=== PATIENT | male | born 1960 | race Caucasian/White ===

== ENCOUNTER → 2017-04-11 | Outpatient (CLI) | payer OTHER ==
--- NOTE | 2017-04-11 11:25 | XR ---
EXAMINATION TYPE: XR hand complete RT DATE OF EXAM: 04/11/2017 COMPARISON: NONE HISTORY: Pain TECHNIQUE: Three views are submitted. FINDINGS: The osseous structures are intact. Hypertrophic change and severe narrowing of the joint space second MCP moderate changes involving the third MCP. No acute fracture or dislocation. No erosive changes. IMPRESSION: 1. Second and third MCP joint arthropathy and hypertrophic pattern correlate for osteoarthritis.
== END | disposition home or self-care (01) ==
LOC: RADXRYALE 11:07
PROVIDERS: ATTEND Internal Medicine
DX: M12.9 Arthropathy, unspecified (principal)

== ENCOUNTER → 2017-04-26 | Outpatient (CLI) | payer OTHER ==
--- NOTE | 2017-04-26 15:03 | XR ---
EXAMINATION TYPE: XR chest 2V DATE OF EXAM: 04/26/2017 COMPARISON: 02/28/2016 TECHNIQUE: PA and lateral views submitted. HISTORY: Shortness of breath FINDINGS: The lungs are clear and there is no pneumothorax, pleural effusion, or focal pneumonia. Biapical pl eural thickening. Postsurgical changes. Arthropathy of the shoulders. Hyperinflation suggests COPD. D egenerative change of the spine. No overt failure. IMPRESSION: 1. No acute process.
== END | disposition home or self-care (01) ==
LOC: RADXRYALE 14:43
PROVIDERS: ATTEND Internal Medicine Rheumatology
DX: R06.02 Shortness of breath (principal)
CPT/HCPCS: 71046

== ENCOUNTER → 2017-05-26 | Outpatient (CLI) | payer OTHER ==
--- NOTE | 2017-05-27 12:06 | ECHOF ---
Referral Reason:I25.10 coronary arteriosclerosis in [place] artery MEASUREMENTS -------- HEIGHT: 175.3 cm WEIGHT: 77.1 kg BP: 151/84 RVIDd: 3.9 cm (< 3.3) IVSd: 1.3 cm (0.6 - 1.1) LVIDd: 4.0 cm (3.9 - 5.3) LVPWd: 1.2 cm (0.6 - 1.1) IVSs: 1.8 cm LVIDs: 3.4 cm LVPWs: 1.3 cm LA Diam: 3.1 cm (2.7 - 3.8) LAESV Index (A-L): 28.27 ml/m Ao Diam: 3.7 cm (2.0 - 3.7) AV Cusp: 1.7 cm (1.5 - 2.6) MV EXCURSION: 20.824 mm (> 18.000) MV EF SLOPE: 101 mm/s (70 - 150) EPSS: 0.8 cm MV E Adelso: 0.96 m/s MV DecT: 280 ms MV A Adelso: 0.76 m/s MV E/A Ratio: 1.26 RAP: 5.00 mmHg RVSP: 37.87 mmHg FINDINGS -------- Sinus rhythm. This was a technically good study. The left ventricular size is normal. There is mild concentric left ventricular hypertrophy. Overa ll left ventricular systolic function is low-normal with, an EF between 50 - 55 %. The right ventricle is mild to moderately enlarged. Normal LA size by volume 22+/-6 ml/m2. The right atrium is normal in size. There is mild aortic valve sclerosis. The mitral valve is normal. Mild tricuspid regurgitation present. The pulmonic valve was not well visualized. The aortic root is dilated measuring 3.7cm. The inferior vena cava is mildly dilated. There is no pericardial effusion. CONCLUSIONS -------- 1. Sinus rhythm. 2. This was a technically good study. 3. The left ventricular size is normal. 4. There is mild concentric left ventricular hypertrophy. 5. Overall left ventricular systolic function is low-normal with, an EF between 50 - 55 %. 6. The right ventricle is mild to moderately enlarged. 7. Normal LA size by volume 22+/-6 ml/m2. 8. The right atrium is normal in size. 9. There is mild aortic valve sclerosis. 10. The mitral valve is normal. 11. Mild tricuspid regurgitation present. 12. The pulmonic valve was not well visualized. 13. The aortic root is dilated measuring 3.7cm. 14. The inferior vena cava is mildly dilated. 15. There is no pericardial effusion. HELP DESK AGENT: Rashi Reeder RDCS
== END | disposition home or self-care (01) ==
LOC: RADECHMAIN 15:14
PROVIDERS: ATTEND Internal Medicine
DX: I07.1 Rheumatic tricuspid insufficiency (principal)
CPT/HCPCS: 93306

== ENCOUNTER → 2017-06-02 | Outpatient (CLI) | payer OTHER ==
--- NOTE | 2017-06-03 07:31 | US ---
EXAMINATION TYPE: US kidneys/renal and bladder DATE OF EXAM: 06/02/2017 COMPARISON: NONE CLINICAL HISTORY: I77.6 Vasculitis,I25.10 Coronary arterial sclerosis. Pt states protein in urine EXAM MEASUREMENTS: Right Kidney: 10.8 x 4.3 x 5.0 cm Left Kidney: 11.0 x 5.6 x 5.7 cm Right Kidney: Appeared wnl, lower pole gassed out Left Kidney: Appeared wnl Bladder: wnl Bilateral Jets seen: Only left jet visualized IMPRESSION: Normal renal ultrasound as visualized.
== END | disposition home or self-care (01) ==
LOC: RADUSWWP 15:51
PROVIDERS: ATTEND Internal Medicine
DX: I77.6 Arteritis, unspecified (principal); I25.10 Atherosclerotic heart disease of native coronary artery without angina pectoris; N52.8 Other male erectile dysfunction
CPT/HCPCS: 76770

== ENCOUNTER 2018-10-24 12:14 | Inpatient (IN) | payer OTHER ==
[2018-10-24] MEDS ORDERED: methylPREDNISolone SOD SUCCI 125 MG/2 ML VIAL IV STA (12:36)
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
[2018-10-24 13:00] LABS: Basophils # (A) 0.1 k/uL (0-0.2); Basophils % (A) 1 %; Eosinophils # (A) 0.1 k/uL (0-0.7); Eosinophils % (A) 1 %; HCT 39.3 % (39.0-53.0); HGB 13.3 gm/dL (13.0-17.5); Lymphocytes % (A) 9 %; MCH 35.8 pg (25.0-35.0); MCHC 33.8 g/dL (31.0-37.0); MCV 105.9 fL (80.0-100.0); Macrocytosis Moderate; Mean Platelet Volume 8.1; Monocytes # (A) 0.7 k/uL (0-1.0); Monocytes % (A) 7 %; Neutrophils # (A) 8.2 k/uL (1.3-7.7); Neutrophils % (A) 80 %; Platelet Count 114 k/uL (150-450); RBC 3.71 m/uL (4.30-5.90); RDW 13.8 % (11.5-15.5); WBC 10.2 k/uL (3.8-10.6)
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
[2018-10-24 13:07] LABS: INR 0.9 (<1.2); Partial Thromboplastin Time 24.1 sec (22.0-30.0); Prothrombin Time 10.2 sec (9.0-12.0)
[2018-10-24 13:13] LABS: ALT 24 U/L (21-72); AST 43 U/L (17-59); African American GFR (CKD) >90 (>60 ml/min/1.73 sqM); Albumin 3.4 g/dL (3.5-5.0); Alkaline Phosphatase 64 U/L (38-126); Anion Gap 9 mmol/L; Blood Urea Nitrogen 25 mg/dL (9-20); Calcium 8.9 mg/dL (8.4-10.2); Carbon Dioxide 25 mmol/L (22-30); Chloride 106 mmol/L (98-107); Glucose 83 mg/dL (74-99); Magnesium 1.9 mg/dL (1.6-2.3); Sodium 140 mmol/L (137-145); Total Bilirubin 1.4 mg/dL (0.2-1.3); Total Protein 6.8 g/dL (6.3-8.2)
[2018-10-24] MEDS ORDERED: ONDANSETRON 4 MG/2 ML VIAL IVP STA (14:01)
[2018-10-24] MEDS ORDERED: MORPHINE SULFATE 4 MG/ML SYRINGE IVP STA (14:01)
--- NOTE | 2018-10-24 14:48 | CT ---
EXAMINATION TYPE: CT chest angio for PE DATE OF EXAM: 10/24/2018 COMPARISON: Same day chest x-ray. HISTORY: COPD with chest pain. CT DLP: 272.8 mGycm. Automated Exposure Control for Dose Reduction was Utilized. CONTRAST: CTA scan of the thorax is performed without and with IV Contrast, patient injected with 100 mL of Iso usman 370, pulmonary embolism protocol. MIP Images are created on CT scanner and reviewed. FINDINGS: LUNGS: Moderate underlying emphysematous change with moderate posterior biapical pleural/parenchymal scarring. There is 1.0 x 0.7 cm scarlike nodule right middle lobe axial image 94. There is small left pleural effusion with associated left basilar compressive atelectasis. Some mucus noted dependently in the left lung bronchus on image 82 and axial image 67. MEDIASTINUM: There is satisfactory enhancement of the pulmonary artery and its branches, there is no CT evidence for pulmonary embolism. There are no greater than 1 cm hilar or mediastinal lymph nodes. No cardiomegaly or pericardial effusion is seen. Post-CABG changes with mediastinal clips and ster nal wires is present. Prominent main pulmonary artery 2.8 cm axial image 63 is noted. OTHER: Redemonstration of acute displaced fracture through the left lateral sixth rib. There there is old fracture left lateral third rib axial image 43. There is acute nondisplaced transverse fracture left lateral fourth rib axial image 54 and acute displaced fracture left lateral fifth rib axial imag e 69 along with slightly displaced fracture left lateral seventh rib axial image 98 and left eighth r ib axial image 121. IMPRESSION: 1. No CT evidence for acute pulmonary embolism. 2. Moderate emphysematous change with small left pleural fluid collection presumed hemothorax with as sociated left basilar atelectasis. There are acute slightly displaced fractures through the left fift h through eighth ribs lateral aspect and acute nondisplaced fracture through the left lateral fourth rib. 3. Note is made of 1.0 x 0.7 cm right middle lobe nodule. Follow-up PET/CT should be considered in th is high-risk patient.
[2018-10-24] MEDS ORDERED: ASPIRIN 81 MG PO STA (15:08)
[2018-10-24] MEDS ORDERED: MORPHINE SULFATE 4 MG/ML SYRINGE IVP PRN (15:24)
[2018-10-24] MEDS ORDERED: NALOXONE 0.4 MG/ML 1 ML VIAL IV PRN (15:34)
[2018-10-24 17:23] LABS: Glucose,Whole Blood 124 mg/dL (75-99)
[2018-10-24 17:33] VITALS: BMI 21.9
[2018-10-25 05:57] LABS: African American GFR (CKD) >90 (>60 ml/min/1.73 sqM); Anion Gap 5 mmol/L; Blood Urea Nitrogen 22 mg/dL (9-20); Calcium 8.8 mg/dL (8.4-10.2); Carbon Dioxide 27 mmol/L (22-30); Chloride 104 mmol/L (98-107); Cholesterol 121 mg/dL (<200); Glucose 108 mg/dL (74-99); HDL Cholesterol 40 mg/dL (40-60); LDL Cholesterol,Calculated 65 mg/dL (0-99); Potassium 4.4 mmol/L (3.5-5.1); Sodium 136 mmol/L (137-145); Triglycerides 79 mg/dL (<150)
[2018-10-25 06:24] LABS: Basophils % (A) 0 %; Eosinophils % (A) 0 %; HCT 37.3 % (39.0-53.0); HGB 12.3 gm/dL (13.0-17.5); Lymphocytes # (A) 0.8 k/uL (1.0-4.8); Lymphocytes % (A) 10 %; MCH 35.5 pg (25.0-35.0); MCV 107.5 fL (80.0-100.0); Macrocytosis Moderate; Monocytes # (A) 0.6 k/uL (0-1.0); Monocytes % (A) 7 %; Neutrophils % (A) 81 %; Platelet Count 137 k/uL (150-450); RBC 3.47 m/uL (4.30-5.90); RDW 13.5 % (11.5-15.5); WBC 8.8 k/uL (3.8-10.6)
--- NOTE | 2018-10-25 07:53 | XR ---
EXAMINATION TYPE: XR chest 1V DATE OF EXAM: 10/25/2018 COMPARISON: 10/24/2018 HISTORY: Rib fracture TECHNIQUE: Single frontal view of the chest is obtained. FINDINGS: Left-sided displaced rib fractures again noted. Biapical pleural thickening with no sizabl e pneumothorax. Tiny left pleural effusion noted. Postsurgical changes seen in the heart size is norm al. Arthropathy of the right shoulder. IMPRESSION: 1. Left-sided displaced rib fractures with small left effusion and basilar infiltrate. No sizable pne umothorax.
[2018-10-25] MEDS ORDERED: IPRATROPIUM-ALBUTEROL 3 ML NEB INHALATION PRN ×2 (08:17)
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
[2018-10-25] MEDS: METOPROLOL TARTRATE 25 MG TAB PO SCH ×2 (08:51→20:10)
[2018-10-25] MEDS: ASPIRIN 81 MG PO SCH (08:51)
[2018-10-25] MEDS: ATORVASTATIN 40 MG TAB PO SCH (08:51)
[2018-10-25] MEDS: PANTOPRAZOLE 40 MG TABLET PO SCH (08:51)
--- NOTE | 2018-10-25 08:52 | ECHOF ---
Referral Reason:Elevated troponin,chest wall trauma MEASUREMENTS -------- HEIGHT: 175.3 cm WEIGHT: 67.6 kg BP: RVIDd: 4.0 cm (< 3.3) IVSd: 1.4 cm (0.6 - 1.1) LVIDd: 4.2 cm (3.9 - 5.3) LVPWd: 1.1 cm (0.6 - 1.1) IVSs: 2.1 cm LVIDs: 2.5 cm LVPWs: 1.6 cm LAESV Index (A-L): 29.01 ml/m Ao Diam: 3.6 cm (2.0 - 3.7) AV Cusp: 1.8 cm (1.5 - 2.6) LA Diam: 4.0 cm (2.7 - 3.8) MV E Adelso: 0.50 m/s MV DecT: 247 ms MV A Adelso: 0.75 m/s MV E/A Ratio: 0.67 RAP: 5.00 mmHg RVSP: 21.00 mmHg FINDINGS -------- Sinus rhythm. This was a technically difficult study with suboptimal views. The left ventricular size is normal. There is mild concentric left ventricular hypertrophy. Overa ll left ventricular systolic function is low-normal with, an EF between 50 - 55 %. The diastolic fi lling pattern is normal for the age of the patient {E/E'}. Septal wall motion is delayed and consis tent with prior cardiac surgery. The right ventricle is moderately enlarged. LA is midly dilated 29-33ml/m2. The right atrium was not well visualized. 5.0mg of Lumason was utilized for enhancement of images Interatrial and interventricular septum intact. The aortic valve was not well visualized. There is no evidence of aortic regurgitation. There is no evidence of aortic stenosis. There is trace mitral regurgitation. Mild tricuspid regurgitation present. There is no evidence of pulmonary hypertension. The right v entricular systolic pressure, as measured by Doppler, is 21.00mmHg. There is no pulmonic regurgitation present. The aortic root size is normal. Normal inferior vena cava with normal inspiratory collapse consistent with estimated right atrial pre ssure of 5 mmHg. There is no pericardial effusion. CONCLUSIONS -------- 1. Sinus rhythm. 2. This was a technically difficult study with suboptimal views. 3. The left ventricular size is normal. 4. There is mild concentric left ventricular hypertrophy. 5. Overall left ventricular systolic function is low-normal with, an EF between 50 - 55 %. 6. The diastolic filling pattern is normal for the age of the patient {E/E'} 7. Septal wall motion is delayed and consistent with prior cardiac surgery. 8. The right ventricle is moderately enlarged. 9. LA is midly dilated 29-33ml/m2. 10. The right atrium was not well visualized. 11. 5.0mg of Lumason was utilized for enhancement of images 12. Interatrial and interventricular septum intact. 13. The aortic valve was not well visualized. 14. There is no evidence of aortic regurgitation. 15. There is no evidence of aortic stenosis. 16. There is trace mitral regurgitation. 17. Mild tricuspid regurgitation present. 18. There is no evidence of pulmonary hypertension. 19. The right ventricular systolic pressure, as measured by Doppler, is 21.00mmHg. 20. There is no pulmonic regurgitation present. 21. The aortic root size is normal. 22. Normal inferior vena cava with normal inspiratory collapse consistent with estimated right atrial pressure of 5 mmHg. 23. There is no pericardial effusion. ACCOUNTANT BUDGET: Carolee Velazquez RDCS
[2018-10-25] MEDS: HYDROcodone/APAP 5-325MG 1 EACH TAB PO PRN ×2 (08:54→13:05)
[2018-10-25] MEDS: SODIUM CHLORIDE 0.9% 1,000 ML IV SCH ×4 (08:55→20:07)
[2018-10-25] MEDS ORDERED: ASPIRIN 325 MG TAB PO SCH (09:00)
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
[2018-10-25] MEDS: methylPREDNISolone SOD SUCCI 40 MG/ML 1 ML VIAL IV SCH ×3 (12:19→23:54)
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
[2018-10-25] MEDS: IPRATROPIUM-ALBUTEROL 3 ML NEB INHALATION SCH ×3 (13:02→19:20)
[2018-10-25] MEDS: KETOROLAC 30 MG/ML 1 ML VIAL IVP SCH ×2 (18:14→23:55)
[2018-10-25] MEDS: SYMBICORT 160-4.5 MCG INHALER INHALATION SCH (19:19)
[2018-10-26] MEDS: HYDROcodone/APAP 5-325MG 1 EACH TAB PO PRN ×3 (03:14→21:49)
[2018-10-26] MEDS: SODIUM CHLORIDE 0.9% 1,000 ML IV SCH ×3 (03:15→17:14)
[2018-10-26 05:18] LABS: Basophils % (A) 0 %; Eosinophils % (A) 0 %; HCT 34.6 % (39.0-53.0); HGB 11.2 gm/dL (13.0-17.5); Lymphocytes # (A) 0.4 k/uL (1.0-4.8); Lymphocytes % (A) 6 %; MCH 35.4 pg (25.0-35.0); MCHC 32.4 g/dL (31.0-37.0); MCV 109.1 fL (80.0-100.0); Macrocytosis Moderate; Mean Platelet Volume 8.8; Monocytes # (A) 0.3 k/uL (0-1.0); Monocytes % (A) 4 %; Neutrophils # (A) 6.5 k/uL (1.3-7.7); Neutrophils % (A) 88 %; Platelet Count 122 k/uL (150-450); RBC 3.17 m/uL (4.30-5.90); RDW 13.6 % (11.5-15.5); WBC 7.3 k/uL (3.8-10.6)
[2018-10-26 05:50] LABS: African American GFR (CKD) >90 (>60 ml/min/1.73 sqM); Anion Gap 2 mmol/L; Blood Urea Nitrogen 19 mg/dL (9-20); Calcium 8.3 mg/dL (8.4-10.2); Carbon Dioxide 27 mmol/L (22-30); Chloride 106 mmol/L (98-107); Glucose 116 mg/dL (74-99); Potassium 4.8 mmol/L (3.5-5.1); Sodium 135 mmol/L (137-145)
[2018-10-26] MEDS: methylPREDNISolone SOD SUCCI 40 MG/ML 1 ML VIAL IV SCH ×3 (06:48→17:10)
[2018-10-26] MEDS: KETOROLAC 30 MG/ML 1 ML VIAL IVP SCH ×3 (06:48→17:09)
[2018-10-26] MEDS: PANTOPRAZOLE 40 MG TABLET PO SCH (06:49)
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
--- NOTE | 2018-10-26 07:23 | XR ---
EXAMINATION TYPE: XR chest 2V DATE OF EXAM: 10/26/2018 COMPARISON: 10/25/2018 TECHNIQUE: PA and lateral views submitted. HISTORY: Rib fractures FINDINGS: Left-sided displaced rib fractures again noted. Biapical pleural thickening with no sizable pneumotho rax. Small bowel left pleural effusion noted. Postsurgical changes seen in the heart size is normal. Arthropathy of the right shoulder. Underlying COPD suspected. Coarsened interstitium may reflect coal washer tender zoraida interstitial lung disease. Degenerative change of the spine. IMPRESSION: 1. Multiple displaced left-sided rib fractures with no sizable pneumothorax. Small left pleural effus ion persist. Consolidation likely in the basis of compressive atelectasis 2. Correlate for COPD
[2018-10-26] MEDS: SYMBICORT 160-4.5 MCG INHALER INHALATION SCH ×2 (07:58→19:51)
[2018-10-26] MEDS: IPRATROPIUM-ALBUTEROL 3 ML NEB INHALATION SCH ×4 (07:58→19:51)
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
[2018-10-26] MEDS: ASPIRIN 81 MG PO SCH (08:57)
[2018-10-26] MEDS: METOPROLOL TARTRATE 12.5 MG TAB PO SCH ×2 (08:57→20:55)
[2018-10-26] MEDS: ATORVASTATIN 40 MG TAB PO SCH (08:57)
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
--- NOTE | 2018-10-26 11:01 | P.PN ---
Subjective Progress Note Date: 10/26/18 Principal diagnosis: Flail chest Patient says his breathing is much better today. Better cough. Pain is controlled. White blood cell count 7.3. He is afebrile. Chest x-ray looks about the same. Objective - Vital Signs Vital signs: Vital Signs Temp 98.7 F 10/25/18 20:00 Pulse 61 10/26/18 08:11 Resp 23 10/26/18 07:00 BP 127/91 10/26/18 07:00 Pulse Ox 89 L 10/26/18 07:00 Intake & Output 10/25/18 10/26/18 10/26/18 18:59 06:59 18:59 Intake Total 2985 1575 125 Output Total 1025 900 0 Balance 1960 675 125 Weight 71.4 kg Intake: IV 1625 1375 125 Sodium Chloride 0.9% 1, 1625 1375 125 000 ml @ 125 mls/hr IV . [facility] Rx#:[id number] Oral 1360 200 Output: Urine 1025 900 0 Other: Voiding Method Urinal # Voids 0 - Exam Chest: Equal breath sounds, left-sided chest tenderness unchanged Abdomen: Soft, nontender, nondistended - Labs CBC & Chem 7: 10/26/18 04:55 10/26/18 04:55 Labs: Abnormal Lab Results - Last 24 Hours (Table) 10/26/18 10/26/18 Range/Units 04:55 04:55 RBC 3.17 L (4.30-5.90) m/uL Hgb 11.2 L (13.0-17.5) gm/dL Hct 34.6 L (39.0-53.0) % MCV 109.1 H (80.0-100.0) fL MCH 35.4 H (25.0-35.0) pg Plt Count 122 L (150-450) k/uL Lymphocytes # 0.4 L (1.0-4.8) k/uL Sodium 135 L (137-145) mmol/L Glucose 116 H (74-99) mg/dL Calcium 8.3 L (8.4-10.2) mg/dL Assessment and Plan (1) Flail chest Narrative/Plan: Continue analgesics for multiple rib fractures. Continue pulmonary toilet. Repeat chest x-ray tomorrow. Possible discharge tomorrow if cleared by consultants. Current Visit: Yes Status: Acute Code(s): S22.5XXA - FLAIL CHEST, INITIAL ENCOUNTER FOR CLOSED FRACTURE SNOMED Code(s): 29447581
[2018-10-26] MEDS: guaiFENesin 600 MG TABLET.ER PO SCH ×2 (11:27→20:55)
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
[2018-10-26] MEDS: HEPARIN SODIUM,PORCINE 5,000 UNIT/ML 1 ML VIAL SQ SCH (17:09)
[2018-10-27] MEDS: methylPREDNISolone SOD SUCCI 40 MG/ML 1 ML VIAL IV SCH ×4 (00:02→15:59)
[2018-10-27] MEDS: HEPARIN SODIUM,PORCINE 5,000 UNIT/ML 1 ML VIAL SQ SCH ×3 (00:02→15:57)
[2018-10-27] MEDS: KETOROLAC 30 MG/ML 1 ML VIAL IVP SCH ×3 (00:03→13:22)
[2018-10-27] MEDS: HYDROcodone/APAP 5-325MG 1 EACH TAB PO PRN (02:10)
[2018-10-27] MEDS: SODIUM CHLORIDE 0.9% 1,000 ML IV SCH ×2 (02:12→11:42)
[2018-10-27 05:34] VITALS: TEMP 97.8
[2018-10-27 05:35] VITALS: BP 132/84
[2018-10-27] MEDS: SYMBICORT 160-4.5 MCG INHALER INHALATION SCH (07:27)
[2018-10-27] MEDS: IPRATROPIUM-ALBUTEROL 3 ML NEB INHALATION SCH ×3 (07:27→15:35)
[2018-10-27 07:33] VITALS: RESP 18
[2018-10-27] MEDS: METOPROLOL TARTRATE 12.5 MG TAB PO SCH (07:41)
[2018-10-27] MEDS: guaiFENesin 600 MG TABLET.ER PO SCH (07:41)
[2018-10-27] MEDS: PANTOPRAZOLE 40 MG TABLET PO SCH (07:41)
[2018-10-27] MEDS: ASPIRIN 81 MG PO SCH (07:41)
[2018-10-27] MEDS: ATORVASTATIN 40 MG TAB PO SCH (07:42)
[2018-10-27] MEDS ORDERED: DOCUSATE 100 MG CAP PO STA (07:51)
--- NOTE | 2018-10-27 08:43 | XR ---
EXAMINATION TYPE: XR chest 2V DATE OF EXAM: 10/27/2018 COMPARISON: 10/26/2018 TECHNIQUE: PA and lateral views submitted. HISTORY: Abnormal x-ray FINDINGS:Left-sided displaced rib fractures again noted. Biapical pleural thickening with no sizable pneumothorax. Small bowel left pleural effusion noted. Postsurgical changes seen in the heart size is normal. Arthropathy of the right shoulder. Underlying COPD suspected. Coarsened interstitium may ref lect chronic interstitial lung disease. Degenerative change of the spine. IMPRESSION: 1. Multiple displaced left-sided rib fractures with no sizable pneumothorax. Small left pleural effus ion persist. Consolidation likely in the basis of compressive atelectasis 2. Correlate for COPD
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
[2018-10-27 15:38] VITALS: PULSE 78
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
== END 2018-10-27 16:51 | disposition home or self-care (01) | DRG 183 ==
LOC: EC 12:14 → 3SCARD 14:29 → 2SICU 16:13 → 4MS4W 10-26 18:09
PROVIDERS: ADMIT Surgery; ATTEND Surgery
DX: S22.5XXA Flail chest, initial encounter for closed fracture (principal); J96.01 Acute respiratory failure with hypoxia; S27.1XXA Traumatic hemothorax, initial encounter; J44.1 Chronic obstructive pulmonary disease with (acute) exacerbation; J98.11 Atelectasis; E78.5 Hyperlipidemia, unspecified; F10.10 Alcohol abuse, uncomplicated; F17.200 Nicotine dependence, unspecified, uncomplicated; I25.10 Atherosclerotic heart disease of native coronary artery without angina pectoris; R74.8 Abnormal levels of other serum enzymes; I45.10 Unspecified right bundle-branch block; I25.2 Old myocardial infarction; V29.9XXA Motorcycle rider (driver) (passenger) injured in unspecified traffic accident, initial encounter; Y92.410 Unspecified street and highway as the place of occurrence of the external cause; Z79.51 Long term (current) use of inhaled steroids; Z79.899 Other long term (current) drug therapy; Z80.8 Family history of malignant neoplasm of other organs or systems; Z82.0 Family history of epilepsy and other diseases of the nervous system; Z95.1 Presence of aortocoronary bypass graft
CPT/HCPCS: 36415; 71045; 71046; 71275; 80048; 80053; 80061; 83735; 83880; 84484; 85025; 85610; 85730; 93005; 93306; 94640; 94760; 96374; 96375; 99285

== ENCOUNTER 2019-02-16 10:46 | Inpatient (IN) | payer OTHER ==
[2019-02-16] MEDS ORDERED: methylPREDNISolone SOD SUCCI 125 MG/2 ML VIAL IV STA (11:01)
[2019-02-16] MEDS ORDERED: IPRATROPIUM-ALBUTEROL 3 ML NEB INHALATION STA ×3 (11:01→12:53)
--- NOTE | 2019-02-16 11:03 | ED ---
General Adult HPI - General Stated complaint: oxygen low, difficulty breathing Time Seen by Provider: 02/16/19 10:57 Source: patient, family, RN notes reviewed Limitations: no limitations - History of Present Illness Initial comments: Patient is a pleasant 58-year-old male presenting to the emergency department with difficulty in breathing. Onset of symptoms was a week or so ago. Occasional cough. Patient is on home oxygen at 3 L. Patient sometimes feels mild discomfort in his chest with dyspnea. Patient does have history of similar symptoms previously associated with COPD. Patient was at his doctor's office earlier today and advised come the emergency Department. No leg pain or leg swelling. - Related Data Home Medications Medication Instructions Recorded Confirmed Albuterol Nebulized [Ventolin 2.5 mg INHALATION RT-QID 10/24/18 02/16/19 Nebulized] Atorvastatin [Lipitor] 40 mg PO DAILY 10/24/18 02/16/19 Budesonide/Formoterol Fumarate 2 puff INHALATION RT-BID 10/24/18 02/16/19 [Symbicort 160-4.5 Mcg Inhaler] Ipratropium Nebulized [Atrovent 0.5 mg INHALATION RT-QID 02/16/19 02/16/19 Nebulized 0.2 MG/ML] Tamsulosin HCl [Flomax] 0.4 mg PO DAILY 02/16/19 02/16/19 guaiFENesin [Mucinex] 600 mg PO BID 02/16/19 02/16/19 Previous Rx's Medication Instructions Recorded Albuterol Inhaler [Ventolin Hfa 1 - 2 puff INHALATION RT-Q6H PRN 10/27/18 Inhaler] 30 Days #1 inhaler Allergies Allergy/AdvReac Type Severity Reaction Status Date / Time No Known Allergies Allergy Verified 02/16/19 11:31 Review of Systems ROS Statement: Those systems with pertinent positive or pertinent negative responses have been documented in the HPI. ROS Other: All systems not noted in ROS Statement are negative. Constitutional: Denies: fever Eyes: Denies: eye pain ENT: Denies: ear pain Respiratory: Reports: cough (minimal, nonproductive), dyspnea Cardiovascular: Reports: as per HPI Endocrine: Reports: fatigue Gastrointestinal: Denies: abdominal pain Genitourinary: Denies: dysuria Musculoskeletal: Denies: back pain Skin: Denies: rash Neurological: Denies: headache Past Medical History Past Medical History: COPD, Hyperlipidemia, Myocardial Infarction (CT) Last Myocardial Infarction Date:: History of Any Multi-Drug Resistant Organisms: None Reported Past Surgical History: Coronary Bypass/CABG Past Anesthesia/Blood Transfusion Reactions: No Reported Reaction Past Psychological History: No Psychological Hx Reported Smoking Status: Former smoker Past Alcohol Use History: Daily Additional Past Alcohol Use History / Comment(s): Drinks 8 beers daily; previously smoked 3 packs per day since he was 22 years old, quit 2 years ago Past Drug Use History: None Reported - Past Family History Father Family Medical History: Cancer Additional Family Medical History / Comment(s): prostate and bone cancer. CABG Brother(s) Family Medical History: Seizure Disorder Additional Family Medical History / Comment(s): another brother had throat cancer General Exam Limitations: no limitations General appearance: alert Head exam: Present: normocephalic Neck exam: Present: normal inspection Respiratory exam: Present: respiratory distress (mild), accessory muscle use, decreased breath sounds Cardiovascular Exam: Present: regular rate, normal rhythm GI/Abdominal exam: Present: soft. Absent: tenderness Extremities exam: Present: normal inspection. Absent: pedal edema, calf tenderness Neurological exam: Present: alert Psychiatric exam: Present: normal affect, normal mood Skin exam: Present: normal color Course Vital Signs 02/16/19 02/16/19 02/16/19 11:05 11:09 11:10 Temperature 97.5 F L Pulse Rate 76 104 H Respiratory 24 26 H Rate Blood Pressure 116/68 O2 Sat by Pulse 80 L Oximetry 02/16/19 02/16/19 02/16/19 11:12 11:13 11:21 Temperature Pulse Rate 80 80 86 Respiratory Rate Blood Pressure O2 Sat by Pulse Oximetry EKG Findings - EKG Comments: EKG Findings:: normal sinus rhythm 78. For screening AV block with a MD of 206. QRS 158. QT 440. QTc 510. Superior axis. Right bundle branch block. Inferior Q waves. Nonspecific ST-T. Medical Decision Making - Medical Decision Making patient reevaluated and updated. Patient is somewhat improved. Dr. Steinberg has been paged for admission for Dr. Mccartney. Cardiology will be placed on consult. Patient will be heparinized. Patient will need further cardiac evaluation. - Lab Data Result diagrams: 02/16/19 11:15 02/16/19 11:15 Lab Results 02/16/19 02/16/19 02/16/19 Range/Units 11:15 11:15 11:15 WBC 8.7 (3.8-10.6) k/uL RBC 4.24 L (4.30-5.90) m/uL Hgb 14.8 (13.0-17.5) gm/dL Hct 44.4 (39.0-53.0) % MCV 104.7 H (80.0-100.0) fL MCH 35.0 (25.0-35.0) pg MCHC 33.4 (31.0-37.0) g/dL RDW 13.7 (11.5-15.5) % Plt Count 190 (150-450) k/uL Neutrophils % 76 % Lymphocytes % 11 % Monocytes % 8 % Eosinophils % 2 % Basophils % 1 % Neutrophils # 6.6 (1.3-7.7) k/uL Lymphocytes # 0.9 L (1.0-4.8) k/uL Monocytes # 0.7 (0-1.0) k/uL Eosinophils # 0.2 (0-0.7) k/uL Basophils # 0.1 (0-0.2) k/uL Macrocytosis Slight PT (9.0-12.0) sec INR (<1.2) APTT (22.0-30.0) sec Sodium 137 (137-145) mmol/L Potassium 4.9 (3.5-5.1) mmol/L Chloride 107 (98-107) mmol/L Carbon Dioxide 20 L (22-30) mmol/L Anion Gap 10 mmol/L BUN 21 H (9-20) mg/dL Creatinine 0.96 (0.66-1.25) mg/dL Est GFR (CKD-EPI)AfAm >90 (>60 ml/min/1.73 sqM) Est GFR (CKD-EPI)NonAf 86 (>60 ml/min/1.73 sqM) Glucose 92 (74-99) mg/dL Calcium 9.4 (8.4-10.2) mg/dL Total Bilirubin 0.7 (0.2-1.3) mg/dL AST 33 (17-59) U/L ALT 24 (4-49) U/L Alkaline Phosphatase 131 H (38-126) U/L Troponin I (0.000-0.034) ng/mL NT-Pro-B Natriuret Pep 2520 pg/mL Total Protein 7.7 (6.3-8.2) g/dL Albumin 3.9 (3.5-5.0) g/dL 02/16/19 02/16/19 Range/Units 11:15 11:15 WBC (3.8-10.6) k/uL RBC (4.30-5.90) m/uL Hgb (13.0-17.5) gm/dL Hct (39.0-53.0) % MCV (80.0-100.0) fL MCH (25.0-35.0) pg MCHC (31.0-37.0) g/dL RDW (11.5-15.5) % Plt Count (150-450) k/uL Neutrophils % % Lymphocytes % % Monocytes % % Eosinophils % % Basophils % % Neutrophils # (1.3-7.7) k/uL Lymphocytes # (1.0-4.8) k/uL Monocytes # (0-1.0) k/uL Eosinophils # (0-0.7) k/uL Basophils # (0-0.2) k/uL Macrocytosis PT 10.8 (9.0-12.0) sec INR 1.0 (<1.2) APTT 26.4 (22.0-30.0) sec Sodium (137-145) mmol/L Potassium (3.5-5.1) mmol/L Chloride (98-107) mmol/L Carbon Dioxide (22-30) mmol/L Anion Gap mmol/L BUN (9-20) mg/dL Creatinine (0.66-1.25) mg/dL Est GFR (CKD-EPI)AfAm (>60 ml/min/1.73 sqM) Est GFR (CKD-EPI)NonAf (>60 ml/min/1.73 sqM) Glucose (74-99) mg/dL Calcium (8.4-10.2) mg/dL Total Bilirubin (0.2-1.3) mg/dL AST (17-59) U/L ALT (4-49) U/L Alkaline Phosphatase (38-126) U/L Troponin I 0.108 H* (0.000-0.034) ng/mL NT-Pro-B Natriuret Pep pg/mL Total Protein (6.3-8.2) g/dL Albumin (3.5-5.0) g/dL - Radiology Data Radiology results: image reviewed (chest x-ray shows postoperative changes. No acute pulmonary disease. Small left effusion.) Critical Care Time Critical Care Time: Yes Total Critical Care Time: 32 Disposition Clinical Impression: Acute exacerbation of chronic obstructive airways disease, Cardiac abnormality, ACS (acute coronary syndrome) Disposition: ADMITTED IP TO THIS HOSP Is patient prescribed a controlled substance at d/c from ED?: No Referrals: Francisca Mccartney MD [Primary Care Provider] - 1-2 days Decision Time: 12:38
[2019-02-16 11:42] LABS: Basophils # (A) 0.1 k/uL (0-0.2); Basophils % (A) 1 %; Eosinophils # (A) 0.2 k/uL (0-0.7); Eosinophils % (A) 2 %; HCT 44.4 % (39.0-53.0); HGB 14.8 gm/dL (13.0-17.5); Lymphocytes # (A) 0.9 k/uL (1.0-4.8); Lymphocytes % (A) 11 %; MCHC 33.4 g/dL (31.0-37.0); MCV 104.7 fL (80.0-100.0); Macrocytosis Slight; Mean Platelet Volume 7.9; Monocytes # (A) 0.7 k/uL (0-1.0); Monocytes % (A) 8 %; Neutrophils # (A) 6.6 k/uL (1.3-7.7); Neutrophils % (A) 76 %; Platelet Count 190 k/uL (150-450); RBC 4.24 m/uL (4.30-5.90); RDW 13.7 % (11.5-15.5); WBC 8.7 k/uL (3.8-10.6)
[2019-02-16 11:53] LABS: ALT 24 U/L (4-49); AST 33 U/L (17-59); African American GFR (CKD) >90 (>60 ml/min/1.73 sqM); Albumin 3.9 g/dL (3.5-5.0); Alkaline Phosphatase 131 U/L (38-126); Anion Gap 10 mmol/L; Blood Urea Nitrogen 21 mg/dL (9-20); Calcium 9.4 mg/dL (8.4-10.2); Carbon Dioxide 20 mmol/L (22-30); Chloride 107 mmol/L (98-107); Glucose 92 mg/dL (74-99); Non-African American GFR(CKD) 86 (>60 ml/min/1.73 sqM); Potassium 4.9 mmol/L (3.5-5.1); Sodium 137 mmol/L (137-145); Total Bilirubin 0.7 mg/dL (0.2-1.3); Total Protein 7.7 g/dL (6.3-8.2)
[2019-02-16 11:58] LABS: Partial Thromboplastin Time 26.4 sec (22.0-30.0); Prothrombin Time 10.8 sec (9.0-12.0)
--- NOTE | 2019-02-16 12:14 | XR ---
EXAMINATION TYPE: XR chest 2V DATE OF EXAM: 02/16/2019 COMPARISON: NONE HISTORY: Shortness of breath TECHNIQUE: Frontal and lateral views of the chest are obtained. FINDINGS: Scattered senescent parenchymal changes noted. Hyperinflation compatible with COPD. No evidence for infiltrate. No evidence for atelectasis. Small left-sided pleural effusion noted. Heart size is stable. Mediastinal structures are stable and grossly unremarkable. No evidence for hilar prominence. Degenerative changes dorsal spine. IMPRESSION: 1. No evidence for acute pulmonary disease.. Small left-sided pleural effusion noted.
[2019-02-16] MEDS ORDERED: ASPIRIN 81 MG PO STA (12:38)
[2019-02-16] MEDS ORDERED: HEPARIN SODIUM,PORCINE 5,000 UNIT/ML 1 ML VIAL IV PRN (12:38)
[2019-02-16] MEDS ORDERED: HEPARIN SODIUM,PORCINE 5,000 UNIT/ML 1 ML VIAL IV ONE (12:38)
[2019-02-16] MEDS ORDERED: IPRATROPIUM-ALBUTEROL 3 ML NEB INHALATION PRN (12:38)
[2019-02-16] MEDS ORDERED: HEPARIN SOD,PORK IN 0.45% NACL 25,000 UNIT in 0.45% NACL 1 250ML.BAG IV SCH (12:45)
[2019-02-16] MEDS: SODIUM CHLORIDE 0.9% 1,000 ML IV SCH ×2 (13:24→23:32)
[2019-02-16] MEDS: IPRATROPIUM-ALBUTEROL 3 ML NEB INHALATION SCH ×2 (16:39→20:41)
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
[2019-02-16] MEDS: AZITHROMYCIN 500 MG TAB PO SCH (18:00)
[2019-02-16] MEDS: methylPREDNISolone SOD SUCCI 125 MG/2 ML VIAL IV SCH ×2 (18:01→23:45)
--- NOTE | 2019-02-16 18:02 | ECHOF ---
Referral Reason: MEASUREMENTS -------- HEIGHT: 175.3 cm WEIGHT: 69.9 kg BP: 116/68 RVIDd: 4.2 cm (< 3.3) IVSd: 1.0 cm (0.6 - 1.1) LVIDd: 3.6 cm (3.9 - 5.3) LVPWd: 1.2 cm (0.6 - 1.1) IVSs: 1.5 cm LVIDs: 2.5 cm LVPWs: 1.1 cm LAESV Index (A-L): 23.42 ml/m Ao Diam: 3.1 cm (2.0 - 3.7) AV Cusp: 2.0 cm (1.5 - 2.6) LA Diam: 3.6 cm (2.7 - 3.8) MV EXCURSION: 18.395 mm (> 18.000) MV EF SLOPE: 75 mm/s (70 - 150) EPSS: 0.8 cm MV E Adelso: 0.56 m/s MV DecT: 133 ms MV A Adelso: 1.05 m/s MV E/A Ratio: 0.53 RAP: 5.00 mmHg RVSP: 55.48 mmHg TAPSE: 12.54 mm FINDINGS -------- Sinus rhythm. This was a technically adequate study. The left ventricular size is normal. There is mild concentric left ventricular hypertrophy. Overa ll left ventricular systolic function is mild-moderately impaired with, an EF between 40 - 45 %. Th ere is evidence of paradoxical septal motion. Increased LAP Grade 3 Diastolic Dysfunction. Basal inferior LV wall motion is hypokinetic. Basal inferoseptal LV wall motion is hypokinetic. Mid i nferior LV wall motion is hypokinetic. The right ventricle is severely enlarged. The right ventricular systolic function is moderately imp aired. The left atrial size is normal. Normal LA size by volume 22+/-6 ml/m2. The right atrial size is normal. Aortic valve is trileaflet and is mildly thickened. The mitral valve leaflets are mildly thickened. Mild mitral regurgitation is present. The tricuspid valve appears structurally normal. Mild tricuspid regurgitation present. There is m oderate pulmonary hypertension. The right ventricular systolic pressure, as measured by Doppler, is 55.48mmHg. There is no pulmonic regurgitation present. The aortic root size is normal. Normal inferior vena cava with normal inspiratory collapse consistent with estimated right atrial pre ssure of 5 mmHg. There is no pericardial effusion. CONCLUSIONS -------- 1. Sinus rhythm. 2. This was a technically adequate study. 3. The left ventricular size is normal. 4. There is mild concentric left ventricular hypertrophy. 5. Overall left ventricular systolic function is mild-moderately impaired with, an EF between 40 - 45 %. 6. There is evidence of paradoxical septal motion. 7. Increased LAP Grade 3 Diastolic Dysfunction. 8. Basal inferior LV wall motion is hypokinetic. 9. Basal inferoseptal LV wall motion is hypokinetic. 10. Mid inferior LV wall motion is hypokinetic. 11. The right ventricle is severely enlarged. 12. The right ventricular systolic function is moderately impaired. 13. The left atrial size is normal. 14. Normal LA size by volume 22+/-6 ml/m2. 15. The right atrial size is normal. 16. Aortic valve is trileaflet and is mildly thickened. 17. The mitral valve leaflets are mildly thickened. 18. Mild mitral regurgitation is present. 19. The tricuspid valve appears structurally normal. 20. Mild tricuspid regurgitation present. 21. There is moderate pulmonary hypertension. 22. There is no pulmonic regurgitation present. 23. The aortic root size is normal. 24. Normal inferior vena cava with normal inspiratory collapse consistent with estimated right atrial pressure of 5 mmHg. 25. There is no pericardial effusion. BECK OPERATOR: Francie Alanis RDCS
[2019-02-16 20:41] LABS: Glucose,Whole Blood 137 mg/dL (75-99)
[2019-02-16] MEDS: INSULIN ASPART (NovoLOG) 100 UNIT/ML VIAL SQ SCH (20:57)
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
[2019-02-17] MEDS: methylPREDNISolone SOD SUCCI 125 MG/2 ML VIAL IV SCH ×2 (05:29→13:56)
[2019-02-17 07:13] LABS: Glucose,Whole Blood 149 mg/dL (75-99)
[2019-02-17 07:24] VITALS: TEMP 98.3
[2019-02-17 07:32] LABS: Mean Platelet Volume 8.3; Platelet Count 173 k/uL (150-450)
[2019-02-17 07:47] LABS: Cholesterol 148 mg/dL (<200); HDL Cholesterol 58 mg/dL (40-60); LDL Cholesterol,Calculated 78 mg/dL (0-99); Triglycerides 62 mg/dL (<150)
[2019-02-17] MEDS: IPRATROPIUM-ALBUTEROL 3 ML NEB INHALATION SCH ×4 (08:34→23:43)
[2019-02-17] MEDS: SYMBICORT 160-4.5 MCG INHALER INHALATION SCH ×2 (08:35→23:43)
[2019-02-17] MEDS ORDERED: ASPIRIN 325 MG TAB PO SCH (09:00)
[2019-02-17] MEDS ORDERED: TAMSULOSIN 0.4 MG CAP.ER.24H PO SCH (09:00)
[2019-02-17] MEDS ORDERED: ATORVASTATIN 40 MG TAB PO SCH (09:00)
[2019-02-17] MEDS: SODIUM CHLORIDE 0.9% 1,000 ML IV SCH (09:02)
[2019-02-17] MEDS: INSULIN ASPART (NovoLOG) 100 UNIT/ML VIAL SQ SCH ×2 (09:02→13:56)
[2019-02-17 10:48] VITALS: BMI 21.9
[2019-02-17 11:50] LABS: Glucose,Whole Blood 176 mg/dL (75-99)
[2019-02-17 14:32] VITALS: BP 105/69; RESP 17
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
[2019-02-17 15:50] VITALS: PULSE 80
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
[2019-02-17 16:51] LABS: Glucose,Whole Blood 139 mg/dL (75-99)
[2019-02-17] MEDS ORDERED: CARVEDILOL 1.563 MG TAB PO SCH (17:30)
[2019-02-17] MEDS: AZITHROMYCIN 500 MG TAB PO SCH (18:19)
[2019-02-18] MEDS ORDERED: LISINOPRIL 2.5 MG TAB PO SCH (09:00)
[2019-02-18] MEDS ORDERED: predniSONE 20 MG TAB PO SCH (09:00)
== END 2019-02-17 18:30 | disposition home or self-care (01) | DRG 190 ==
LOC: EC 10:46 → 3SCARD 12:38 → 5NMEDONC 14:21 → 4SSUR 14:44
PROVIDERS: ADMIT Hospitalist; ATTEND Hospitalist
DX: J44.1 Chronic obstructive pulmonary disease with (acute) exacerbation (principal); J96.21 Acute and chronic respiratory failure with hypoxia; I42.9 Cardiomyopathy, unspecified; J90 Pleural effusion, not elsewhere classified; E78.5 Hyperlipidemia, unspecified; I25.10 Atherosclerotic heart disease of native coronary artery without angina pectoris; I25.2 Old myocardial infarction; I45.10 Unspecified right bundle-branch block; K21.9 Gastro-esophageal reflux disease without esophagitis; R79.89 Other specified abnormal findings of blood chemistry; Z79.51 Long term (current) use of inhaled steroids; Z79.899 Other long term (current) drug therapy; Z99.81 Dependence on supplemental oxygen; Z95.1 Presence of aortocoronary bypass graft; Z87.891 Personal history of nicotine dependence; Z82.0 Family history of epilepsy and other diseases of the nervous system; Z80.0 Family history of malignant neoplasm of digestive organs; Z80.42 Family history of malignant neoplasm of prostate; Z80.8 Family history of malignant neoplasm of other organs or systems
CPT/HCPCS: 36415; 71046; 80053; 80061; 83880; 84484; 85025; 85049; 85610; 85730; 87070; 87077; 87186; 87205; 93005; 93306; 94640; 94642; 96365; 96366; 96375; 96376; 99291

== ENCOUNTER 2019-03-01 11:30 | Day surgery (SDC) | payer OTHER ==
[2019-02-26 13:22] VITALS: BMI 22.7
[~2019-03-01 11:30] MED LIST: ALBUTEROL NEB (CONC) 2.5 MG/0.5 ML INHALATION ONE; ATROPINE SULFATE 0.4 MG/ML 1 ML VIAL IM ONE; LACTATED RINGERS 1,000 ML IV SCH; LIDOCAINE 1% 20 ML VIAL (10MG/ML) FOR IV START INTRADERMA PRN; LIDOCAINE 2% (PF) 20 MG/ML 5 ML VIAL INHALATION ONE; LIDOCAINE VISCOUS 300 MG/15 ML CUP MUCOUS MEM ONE; SODIUM CHLORIDE 0.9% 1,000 ML IV SCH
[2019-03-01 11:56] VITALS: TEMP 98.5
[2019-03-01 12:04] LABS: Glucose,Whole Blood 77 mg/dL (75-99)
[2019-03-01] MEDS ORDERED: GLYCOPYRROLATE 0.2 MG/ML 2 ML VIAL ONE (12:34)
[2019-03-01] MEDS ORDERED: PROPOFOL 10 MG/ML 20 ML VIAL IV ONE (12:34)
[2019-03-01] MEDS ORDERED: LIDOCAINE 1% INJ 10MG/ML (20 ML MDV) ONE (12:34)
[2019-03-01] MEDS ORDERED: LIDOCAINE 2% INJ 20 MG/ML INTRATRACH ONE (12:52)
[2019-03-01 13:29] VITALS: RESP 20
[2019-03-01 14:03] VITALS: BP 114/81; PULSE 85
[2019-03-01 17:15] LABS: Appearance,BF Hazy; Color,BF Pink; Nucleated Cells, Body Fluid 120 /uL; RBC, Body Fluid 660 /uL
[2019-03-01 17:17] LABS: Mononuclear WBC,Body Fluid 8 %; Polynuclear WBC,Body Fluid 92 %; Total Cells Counted,Body Fluid 100
--- NOTE | 2019-03-02 08:21 | PCN ---
PROCEDURE NOTE PROCEDURE PERFORMED: Bronchoscopy, airway examination, therapeutic lavage, BAL. OPERATORS: Dr. Keene, Dr. Higuera, Kleber Monteiro. PREOPERATIVE DIAGNOSIS: Retained secretions, severe COPD, tracheobronchitis. POSTOPERATIVE DIAGNOSIS: Retained secretions, severe COPD, tracheobronchitis. The patient's procedure was done in room 1, endoscopy. FIELD ACCOUNT DIRECTOR provided general anesthesia/unconscious sedation. There was informed consent and universal timeout. All the appropriate paperwork was signed. After the patient was sedated and being fully monitored, the bronchoscope was inserted through the right nostril. It passed through the right nasopharynx into the oropharynx. From the oropharynx in the hypopharynx. The hypopharyngeal revealed structures looked relatively normal except he did notice some yeast on the vocal cords. Will prescribe some Diflucan for that. Anterior commissure, true cords, otherwise the false cords, arytenoids, piriform sinuses, right and left vallecula, and epiglottis all appeared relatively normal. After topicalization, bronchoscope was pushed through the glottic opening into the trachea. The trachea did have a bit of a saber-sheath appearance. Not overwhelming by any means. There were some thick secretions noted throughout the trachea. They were suctioned with the aid of saline lavage. The tracheal elvira was sharp. The right upper lobe and its 3 segments, right middle lobe and its 2 segments, the right lower lobe and its 5 segments, the left upper lobe and its 2 segments, the lingula and its 2 segments and the left lower lobe and its 4 segments all had similar findings of diffuse airway erythema and hyperemia. The airways were friable. The bled easily. There were thick secretions noted throughout. They were suctioned with some difficulty with saline lavage. There was no bleeding. There was no dominant mass or tumor. The bronchoscope was then wedged into the right middle lobe. The BAL took place. There was no immediate complication, 30 mL was recovered. The fluid will be sent for analysis. Additional secretions were suctioned and the bronchoscope was withdrawn. The patient will be recovered. No additional recommendations are made. MMODL / IJN: [id number] /
== END 2019-03-01 14:05 | disposition home or self-care (01) ==
LOC: ORWHC2ENDO 11:30
PROVIDERS: ATTEND Internal Medicine Critical Care Medicine
DX: J44.9 Chronic obstructive pulmonary disease, unspecified (principal); J96.90 Respiratory failure, unspecified, unspecified whether with hypoxia or hypercapnia; I25.2 Old myocardial infarction; I25.10 Atherosclerotic heart disease of native coronary artery without angina pectoris; E78.5 Hyperlipidemia, unspecified; Z95.1 Presence of aortocoronary bypass graft; Z87.891 Personal history of nicotine dependence; Z79.02 Long term (current) use of antithrombotics/antiplatelets; Z79.51 Long term (current) use of inhaled steroids; Z79.82 Long term (current) use of aspirin; Z79.899 Other long term (current) drug therapy; Z87.81 Personal history of (healed) traumatic fracture; Z80.9 Family history of malignant neoplasm, unspecified
CPT/HCPCS: 94640; 87798 ×3; 87496; 87498; 87529; 88108; 88305; 89050; 87252; 87502; 87634; 87070; 87205; 87116; 87102; 87206; 31624; J2001 ×3; J0461; J2704

== ENCOUNTER 2019-03-24 14:04 | Inpatient (IN) | payer OTHER ==
[2019-03-24] MEDS ORDERED: NITROGLYCERIN OINT 1 INCH/GM PACKET TOPICAL STA (14:27)
[2019-03-24] MEDS ORDERED: ASPIRIN 81 MG PO STA (14:27)
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
--- NOTE | 2019-03-24 14:45 | XR ---
EXAMINATION TYPE: XR chest 2V DATE OF EXAM: 03/24/2019 COMPARISON: 02/16/2019 HISTORY: Short of breath TECHNIQUE: FINDINGS: There is coarse interstitial density in the lungs. There is some blunting of left costophre zoraida angle. There is pleural thickening and interstitial infiltrate at the lung apices. Heart size is normal. There are no hilar masses. There are sternal wires. There are chest leads. Bony thorax is int act. IMPRESSION: There is pleural diaphragmatic scarring at the left lung base unchanged. Pulmonary inters titial fibrosis. No heart failure seen. Apical pleural and pulmonary scarring. No evidence of any new pulmonary density compared to old exam.
[2019-03-24 14:51] LABS: Basophils # (A) 0.1 k/uL (0-0.2); Basophils % (A) 1 %; Eosinophils # (A) 0.2 k/uL (0-0.7); Eosinophils % (A) 2 %; HCT 45.3 % (39.0-53.0); HGB 14.8 gm/dL (13.0-17.5); Lymphocytes # (A) 1.2 k/uL (1.0-4.8); Lymphocytes % (A) 13 %; MCH 34.6 pg (25.0-35.0); MCHC 32.7 g/dL (31.0-37.0); MCV 105.6 fL (80.0-100.0); Macrocytosis Slight; Mean Platelet Volume 7.9; Monocytes # (A) 0.6 k/uL (0-1.0); Monocytes % (A) 7 %; Neutrophils # (A) 7.1 k/uL (1.3-7.7); Neutrophils % (A) 75 %; Platelet Count 222 k/uL (150-450); RBC 4.29 m/uL (4.30-5.90); RDW 13.4 % (11.5-15.5); WBC 9.5 k/uL (3.8-10.6)
[2019-03-24 15:06] LABS: Partial Thromboplastin Time 24.6 sec (22.0-30.0); Prothrombin Time 10.8 sec (9.0-12.0)
[2019-03-24 15:11] LABS: Albumin 3.7 g/dL (3.5-5.0); Calcium 8.9 mg/dL (8.4-10.2); Magnesium 1.9 mg/dL (1.6-2.3); Potassium 4.3 mmol/L (3.5-5.1); Total Bilirubin 0.7 mg/dL (0.2-1.3); Total Protein 7.3 g/dL (6.3-8.2)
[2019-03-24] MEDS ORDERED: HEPARIN SODIUM,PORCINE 5,000 UNIT/ML 1 ML VIAL IV ONE (16:07)
[2019-03-24] MEDS ORDERED: NITROGLYCERIN SL TABS 0.4 MG TAB SUBLINGUAL PRN (16:07)
[2019-03-24] MEDS: HEPARIN SOD,PORK IN 0.45% NACL 25,000 UNIT in 0.45% NACL 1 250ML.BAG IV SCH (16:23)
[2019-03-24] MEDS ORDERED: CARVEDILOL 1.563 MG TAB PO SCH (17:30)
[2019-03-24] MEDS ORDERED: ALBUTEROL NEBULIZED 2.5 MG/3 ML INHALATION SCH (21:04)
[2019-03-24] MEDS: NITROGLYCERIN OINT 1 INCH/GM PACKET TOPICAL SCH ×2 (21:29→21:36)
[2019-03-24] MEDS: guaiFENesin 600 MG TABLET.ER PO SCH (21:36)
[2019-03-24] MEDS: valACYclovir HCL 1,000 MG TABLET PO SCH (21:50)
[2019-03-24] MEDS: HEPARIN SODIUM,PORCINE 5,000 UNIT/ML 1 ML VIAL IV PRN (22:30)
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
[2019-03-25] MEDS: NITROGLYCERIN OINT 1 INCH/GM PACKET TOPICAL SCH ×4 (05:14→22:48)
[2019-03-25 06:43] LABS: Mean Platelet Volume 8.1; Platelet Count 182 k/uL (150-450)
[2019-03-25 07:08] LABS: Cholesterol 112 mg/dL (<200); HDL Cholesterol 34 mg/dL (40-60); LDL Cholesterol,Calculated 66 mg/dL (0-99); Triglycerides 61 mg/dL (<150)
[2019-03-25] MEDS: IPRATROPIUM-ALBUTEROL 3 ML NEB INHALATION SCH ×4 (07:35→19:55)
[2019-03-25] MEDS ORDERED: NON FORMULARY DRUG (Fluticasone/Umeclidin/Vilanter [Trelegy Ellipta 100-62.5-25] 1 PUFF) INHALATION SCH (08:00)
[2019-03-25] MEDS ORDERED: IPRATROPIUM 0.5 MG/2.5 ML NEBU INHALATION SCH (08:00)
[2019-03-25] MEDS ORDERED: ALBUTEROL NEBULIZED 2.5 MG/3 ML INHALATION SCH (08:00)
[2019-03-25] MEDS ORDERED: ASPIRIN 325 MG TAB PO SCH (09:00)
[2019-03-25] MEDS ORDERED: ATORVASTATIN 40 MG TAB PO SCH (09:00)
[2019-03-25] MEDS: METOPROLOL SUCCINATE (ER) 25 MG TAB.ER.24H PO SCH (09:33)
[2019-03-25] MEDS: guaiFENesin 600 MG TABLET.ER PO SCH ×2 (09:33→20:22)
[2019-03-25] MEDS: TAMSULOSIN 0.4 MG CAP.ER.24H PO SCH (09:33)
[2019-03-25] MEDS: valACYclovir HCL 1,000 MG TABLET PO SCH ×3 (09:33→20:22)
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
[2019-03-25] MEDS: ATORVASTATIN 80 MG TAB PO SCH (12:06)
[2019-03-25] MEDS: ASPIRIN 81 MG PO SCH (12:07)
[2019-03-25] MEDS: HEPARIN SOD,PORK IN 0.45% NACL 25,000 UNIT in 0.45% NACL 1 250ML.BAG IV SCH (16:32)
[2019-03-25] MEDS: methylPREDNISolone SOD SUCCI 40 MG/ML 1 ML VIAL IV SCH ×2 (16:35→23:03)
[2019-03-25 17:00] LABS: Glucose,Whole Blood 89 mg/dL (75-99)
[2019-03-25] MEDS: INSULIN ASPART (NovoLOG) 100 UNIT/ML VIAL SQ SCH ×2 (17:44→20:44)
[2019-03-25] MEDS ORDERED: FLUTICASONE INHALATION SCH (18:37)
[2019-03-25] MEDS ORDERED: VILANTER INHALATION SCH (18:37)
[2019-03-25] MEDS ORDERED: UMECLIDIN INHALATION SCH (18:37)
[2019-03-25] MEDS ORDERED: BUDESONIDE 0.5 MG/2 ML NEBU INHALATION SCH (20:00)
[2019-03-25 20:39] LABS: Glucose,Whole Blood 130 mg/dL (75-99)
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
[2019-03-26 06:03] LABS: Glucose,Whole Blood 127 mg/dL (75-99)
[2019-03-26] MEDS: INSULIN ASPART (NovoLOG) 100 UNIT/ML VIAL SQ SCH ×4 (06:05→20:58)
[2019-03-26] MEDS: NITROGLYCERIN OINT 1 INCH/GM PACKET TOPICAL SCH ×4 (06:18→23:26)
[2019-03-26 06:38] LABS: Basophils % (A) 0 %; Eosinophils % (A) 0 %; HCT 41.2 % (39.0-53.0); HGB 13.1 gm/dL (13.0-17.5); Lymphocytes # (A) 0.7 k/uL (1.0-4.8); Lymphocytes % (A) 11 %; MCH 33.5 pg (25.0-35.0); MCHC 31.9 g/dL (31.0-37.0); MCV 105.2 fL (80.0-100.0); Macrocytosis Moderate; Mean Platelet Volume 8.4; Monocytes # (A) 0.2 k/uL (0-1.0); Monocytes % (A) 2 %; Neutrophils # (A) 5.3 k/uL (1.3-7.7); Neutrophils % (A) 86 %; Platelet Count 204 k/uL (150-450); RBC 3.92 m/uL (4.30-5.90); RDW 13.9 % (11.5-15.5); WBC 6.2 k/uL (3.8-10.6)
[2019-03-26] MEDS: HEPARIN SODIUM,PORCINE 5,000 UNIT/ML 1 ML VIAL IV PRN (06:46)
[2019-03-26 07:09] LABS: African American GFR (CKD) >90 (>60 ml/min/1.73 sqM); Anion Gap 9 mmol/L; Blood Urea Nitrogen 25 mg/dL (9-20); Calcium 9.1 mg/dL (8.4-10.2); Carbon Dioxide 23 mmol/L (22-30); Chloride 104 mmol/L (98-107); Glucose 125 mg/dL (74-99); Non-African American GFR(CKD) >90 (>60 ml/min/1.73 sqM); Potassium 4.8 mmol/L (3.5-5.1); Sodium 136 mmol/L (137-145)
[2019-03-26] MEDS: VILANTER INHALATION SCH ×2 (08:13→09:04)
[2019-03-26] MEDS: UMECLIDIN INHALATION SCH ×2 (08:13→09:04)
[2019-03-26] MEDS: FLUTICASONE INHALATION SCH ×2 (08:13→09:04)
[2019-03-26] MEDS ORDERED: ASPIRIN 81 MG PO SCH (09:00)
[2019-03-26] MEDS ORDERED: ATORVASTATIN 80 MG TAB PO SCH (09:00)
[2019-03-26] MEDS: guaiFENesin 600 MG TABLET.ER PO SCH ×2 (09:21→21:06)
[2019-03-26] MEDS: TAMSULOSIN 0.4 MG CAP.ER.24H PO SCH (09:21)
[2019-03-26] MEDS: ATORVASTATIN 80 MG TAB PO SCH (09:21)
[2019-03-26] MEDS: METOPROLOL SUCCINATE (ER) 25 MG TAB.ER.24H PO SCH (09:21)
[2019-03-26] MEDS: methylPREDNISolone SOD SUCCI 40 MG/ML 1 ML VIAL IV SCH ×3 (09:21→23:25)
[2019-03-26] MEDS: ASPIRIN 81 MG PO SCH (09:22)
[2019-03-26] MEDS: valACYclovir HCL 1,000 MG TABLET PO SCH ×3 (09:54→21:07)
[2019-03-26 12:01] LABS: Glucose,Whole Blood 157 mg/dL (75-99)
--- NOTE | 2019-03-26 13:33 | P.PN ---
Subjective This is Gladys Javier PA-C dictating a progress note on this patient The patient was interviewed and examined by me as well as by Dr. Ross Case discussed with Dr. Ross and he agrees with the plan of care HPI/interval history Patient is a 58-year-old male with a past medical history of COPD, CAD status post CABG, prior [place], dyslipidemia who presented with complaints of chest discomfort. He had borderline abnormal troponins. No acute EKG changes. Patient seen and examined resting in bed. Continues to have some "slight" chest discomfort with walking but states it has improved. States his breathing has also improved significantly with the steroids. Denies any chest pain currently. EXAMINATION Temperature 97.1F, pulse 75, respirations 22, blood pressure 114/70, oxygen saturation 94% on 4 L nasal cannula Patient seen and examined sitting in bed, in no acute distress Breath sounds diminished bilaterally Heart is regular, no audible murmurs No lower extremity edema REVIEW OF LABS, ECG Hemoglobin 13.1, WBC 6.2, platelets 204, potassium 4.8, BUN 25, creatinine 0.84 LDL is 66 IMPRESSION / ASSESSMENT: Progressively worsening intermittent burning chest discomfort, exertional, borderline abnormal troponins, flat, no acute changes on EKG, patient currently chest pain-free, states breathing is improving History of CAD status post CABG Ischemic cardiomyopathy, recent echo showing EF 40-45% Dyslipidemia COPD on home oxygen Former smoker PLAN: Dr. Ross spoke with Dr. Garza, planning for heart catheterization tomorrow Continue aspirin, statins, metoprolol may stop heparin now Objective - Vital Signs Vital signs: Vital Signs Temp 97.1 F L 03/26/19 08:00 Pulse 67 03/26/19 12:00 Resp 22 03/26/19 03:24 BP 114/70 03/26/19 12:00 Pulse Ox 92 L 03/26/19 12:00 Intake & Output 03/25/19 03/26/19 03/26/19 18:59 06:59 18:59 Intake Total 679.598 689.137 20 Balance 679.598 689.137 20 Weight 67.9 kg 68.3 kg Intake: IV 10.47 20 Heparin Sod,Pork in 0.45% 10.47 20 NaCl 25,000 unit In 0.45 % NaCl 1 250ml.bag @ 12 UNITS/KG/HR 8.382 mls/hr IV .Q24H [facility] Rx#: [id number] Intake, IV Titration 189.128 149.137 Amount Heparin Sod,Pork in 0.45% 189.128 149.137 NaCl 25,000 unit In 0.45 % NaCl 1 250ml.bag @ 12 UNITS/KG/HR 8.382 mls/hr IV .Q24H [facility] Rx#: [id number] Oral 480 540 Other: Voiding Method Toilet # Voids 2 1 - Labs CBC & Chem 7: 03/26/19 05:49 03/26/19 05:49 Labs: Abnormal Lab Results - Last 24 Hours (Table) 03/25/19 03/26/19 03/26/19 Range/Units 20:37 05:49 05:49 RBC 3.92 L (4.30-5.90) m/uL MCV 105.2 H (80.0-100.0) fL Lymphocytes # 0.7 L (1.0-4.8) k/uL APTT 36.7 H (22.0-30.0) sec Sodium (137-145) mmol/L BUN (9-20) mg/dL Glucose (74-99) mg/dL POC Glucose (mg/dL) 130 H (75-99) mg/dL 03/26/19 03/26/19 03/26/19 Range/Units 05:49 06:02 11:59 RBC (4.30-5.90) m/uL MCV (80.0-100.0) fL Lymphocytes # (1.0-4.8) k/uL APTT (22.0-30.0) sec Sodium 136 L (137-145) mmol/L BUN 25 H (9-20) mg/dL Glucose 125 H (74-99) mg/dL POC Glucose (mg/dL) 127 H 157 H (75-99) mg/dL
[2019-03-26] MEDS: IPRATROPIUM-ALBUTEROL 3 ML NEB INHALATION PRN (16:29)
[2019-03-26 17:15] LABS: Glucose,Whole Blood 118 mg/dL (75-99)
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
[2019-03-26] MEDS: IPRATROPIUM-ALBUTEROL 3 ML NEB INHALATION SCH (20:31)
[2019-03-26] MEDS: SYMBICORT 160-4.5 MCG INHALER INHALATION SCH ×2 (20:31→20:35)
[2019-03-26 20:43] LABS: Glucose,Whole Blood 125 mg/dL (75-99)
[2019-03-27 06:15] LABS: Glucose,Whole Blood 130 mg/dL (75-99)
[2019-03-27] MEDS: NITROGLYCERIN OINT 1 INCH/GM PACKET TOPICAL SCH ×2 (06:15→11:54)
[2019-03-27] MEDS: TAMSULOSIN 0.4 MG CAP.ER.24H PO SCH (06:16)
[2019-03-27] MEDS: INSULIN ASPART (NovoLOG) 100 UNIT/ML VIAL SQ SCH ×4 (06:16→21:12)
[2019-03-27] MEDS: ATORVASTATIN 80 MG TAB PO SCH (06:16)
[2019-03-27] MEDS: METOPROLOL SUCCINATE (ER) 25 MG TAB.ER.24H PO SCH (06:16)
[2019-03-27] MEDS: guaiFENesin 600 MG TABLET.ER PO SCH ×2 (06:17→21:20)
[2019-03-27] MEDS: ASPIRIN 81 MG PO SCH (06:17)
[2019-03-27] MEDS: valACYclovir HCL 1,000 MG TABLET PO SCH ×3 (06:20→21:21)
[2019-03-27 06:41] LABS: Basophils % (A) 0 %; Eosinophils % (A) 0 %; HCT 36.8 % (39.0-53.0); Lymphocytes # (A) 0.6 k/uL (1.0-4.8); Lymphocytes % (A) 7 %; MCH 34.7 pg (25.0-35.0); MCHC 32.6 g/dL (31.0-37.0); MCV 106.3 fL (80.0-100.0); Macrocytosis Moderate; Mean Platelet Volume 8.3; Monocytes # (A) 0.5 k/uL (0-1.0); Monocytes % (A) 5 %; Neutrophils % (A) 87 %; Platelet Count 189 k/uL (150-450); RBC 3.46 m/uL (4.30-5.90); RDW 14.3 % (11.5-15.5); WBC 9.2 k/uL (3.8-10.6)
[2019-03-27 06:57] LABS: African American GFR (CKD) >90 (>60 ml/min/1.73 sqM); Anion Gap 6 mmol/L; Blood Urea Nitrogen 28 mg/dL (9-20); Calcium 9.2 mg/dL (8.4-10.2); Carbon Dioxide 25 mmol/L (22-30); Chloride 106 mmol/L (98-107); Glucose 116 mg/dL (74-99); Non-African American GFR(CKD) >90 (>60 ml/min/1.73 sqM); Potassium 4.8 mmol/L (3.5-5.1); Sodium 137 mmol/L (137-145)
[2019-03-27] MEDS: UMECLIDIN INHALATION SCH (08:09)
[2019-03-27] MEDS: IPRATROPIUM-ALBUTEROL 3 ML NEB INHALATION SCH ×3 (08:09→19:11)
[2019-03-27] MEDS: SYMBICORT 160-4.5 MCG INHALER INHALATION SCH ×2 (08:09→19:12)
[2019-03-27] MEDS: VILANTER INHALATION SCH (08:09)
[2019-03-27] MEDS: FLUTICASONE INHALATION SCH (08:09)
[2019-03-27] MEDS: methylPREDNISolone SOD SUCCI 40 MG/ML 1 ML VIAL IV SCH ×3 (08:40→23:18)
[2019-03-27] MEDS ORDERED: ACETAMINOPHEN TAB 325 MG TAB PO PRN (08:56)
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
[2019-03-27] MEDS ORDERED: LIDOCAINE 1% INJ 10MG/ML (20 ML MDV) ONE (11:39)
[2019-03-27] MEDS ORDERED: fentaNYL (PF) 50 MCG/ML 2 ML AMP ONE (11:47)
[2019-03-27] MEDS ORDERED: HEPARIN SODIUM 1,000 UN/ML (10ML VL) ONE (11:47)
[2019-03-27] MEDS ORDERED: IV FLUID CONTINUATION 1,000 ML IV ONE (11:48)
[2019-03-27] MEDS ORDERED: MIDAZOLAM 2 MG/2 ML VIAL IV ONE ×2 (11:49)
[2019-03-27] MEDS ORDERED: LIDOCAINE 1% INJ 10MG/ML (20 ML MDV) SQ ONE (11:51)
[2019-03-27] MEDS ORDERED: IOPAMIDOL-370 100ML BTL INJ ONE ×2 (12:05→12:43)
[2019-03-27] MEDS ORDERED: CLOPIDOGREL 75 MG TAB ONE (12:29)
[2019-03-27] MEDS ORDERED: BIVALIRUDIN BOLUS 250 MG/50 ML IV ONE (12:32)
[2019-03-27] MEDS ORDERED: CLOPIDOGREL 75 MG TAB PO ONE (12:33)
[2019-03-27] MEDS ORDERED: BIVALIRUDIN 250 MG in SODIUM CHLORIDE 0.9% 50 ML IV ONE (12:34)
[2019-03-27] MEDS ORDERED: NITROGLYCERIN 1000MCG/10ML SYRINGE INTRACORON ONE (12:44)
[2019-03-27] MEDS ORDERED: IOPAMIDOL-370 125ML BTL INJ ONE (12:55)
--- NOTE | 2019-03-27 12:55 | CC ---
CARDIAC CATHETERIZATION REPORT INDICATION: Non ST-segment elevation SC. PROCEDURE NOTE: After obtaining informed consent, left heart catheterization, coronary angiogram, selective injection of the bypass grafts are performed via the right femoral artery using standard Renard catheters. Patient tolerated the procedure well without any obvious immediate complications. Patient received moderate conscious sedation. Total sedation time was 32 minutes. The patient had bypass surgery involving FUNG to LAD, venous graft to diagonal 1, venous graft day 2 and radial artery graft to OM. FINDINGS: 1. HEMODYNAMICS: Left ventricular end-diastolic pressure is 16 to 18 mm. There is no significant gradient across the aortic valve. 2. LEFT VENTRICULOGRAM: Left ventriculogram is not performed. 3. ANGIOGRAPHIC DATA: Left Main Coronary Artery: Left main coronary artery appears calcified, divides into left anterior descending coronary artery and circumflex coronary artery. LAD shows an 80% to 90% stenosis involving proximal and midportion with competitive flow noted in the diagonal branch. Circumflex coronary artery shows a long segment of 95% stenosis. Right coronary artery is chronically occluded in its midportion. SELECTIVE INJECTION OF THE BYPASS GRAFTS: FUNG to LAD: FUNG appears patent. Proximal and distal anastomotic sites are free of significant disease. FUNG is free of significant disease. Venous graft to diagonal appears patent. There is an area of stenosis in the [place] diagonal just past the distal attachment. The proximal portion of the graft and the body of the graft appears free of significant disease. Radial artery graft to the OM branch appears patent with good inflow and outflow. The venous graft to the second diagonal branch seems to have been occluded. CONCLUSIONS: 1. Severe three-vessel coronary artery disease as described above. 2. Patent FUNG to LAD, patent radial artery graft to OM and patent venous graft to diagonal with significant area of stenosis past the distal attachment of the graft. PLAN: Patient will undergo angioplasty with stent placement of the same. MMODL / IJN: [id number] /
--- NOTE | 2019-03-27 13:00 | LTR ---
March 27, 2019 Re: Jaison Shaw Dear Francisca: I performed cardiac catheterization on Jaison Shaw. A detailed catheterization note is enclosed for your records. In brief, he presented to hospital with unstable angina and had mild troponin elevation and underwent cardiac catheterization that revealed severe three-vessel coronary artery disease with patent FUNG to LAD, radial artery graft to the OM and venous graft to diagonal. One of the venous grafts seems to have been chronically occluded. The venous graft to diagonal has significant distal stenosis and patient will undergo angioplasty of the same. Thank you for allowing us to participate in this pleasant gentleman. Sincerely, MD RUBINA Fernando / SHELLY: [id number] /
[2019-03-27] MEDS ORDERED: ZOLPIDEM 5 MG TAB PO PRN (13:06)
[2019-03-27] MEDS ORDERED: MAG HYDROX/AL HYDROX/SIMETH 30 ML CUP PO PRN (13:06)
[2019-03-27] MEDS ORDERED: RX INFO: IV CONTRAST WAS GIVEN 1 EACH MISC MISCELLANE PRN (13:06)
[2019-03-27] MEDS ORDERED: NITROGLYCERIN SL TABS 0.4 MG TAB SUBLINGUAL PRN (13:06)
[2019-03-27] MEDS ORDERED: ATROPINE SULFATE 0.1 MG/ML 10ML SYRINGE IV PRN (13:06)
[2019-03-27] MEDS ORDERED: SODIUM CHLORIDE 0.9% 1,000 ML IV SCH (13:15)
--- NOTE | 2019-03-27 13:25 | PTCA ---
PERCUTANEOUSTRANS CORORONARY ANGIOGRAPHY Mr. Shaw is a 58-year-old male who presented with a non ST-segment elevation myocardial infarction. He is status post coronary artery bypass grafting, underwent cardiac catheterization by Dr. Garza and was found to have significant disease involving the distal anastomotic site of the saphenous vein graft to the diagonal branch. In view of that, recommendation was made regarding angioplasty and stenting. The procedure as well as the risks and the complications were discussed with the patient who is in full understanding and agreement. PROCEDURE: A 6-Khmer FR4 guiding catheter was introduced in the system. After cannulating the ostium and the graft, 0.014 balanced medium weight J-wire was advanced across the lesion positioned distally then a 2.25 x 12 mm TREK balloon was advanced and 2 inflations with maximum of 8 atmospheres were done. Following that, the balloon was removed and a 2.25 x 15 mm Xience Alisa stent was deployed, postdilated at 16 atmospheres. After the last inflation, after appropriate wait, the balloon and the guidewire were withdrawn back in the guiding catheter. Images were obtained, repeated. Those images reveal stable successful stenting. At that point, the guiding catheter, the balloon and the guidewire were removed. The sheath was removed. Hemostasis was obtained with deployment of an Angio-Seal. There was no immediate complication. Patient was returned to his room in stable condition. Of note, the patient received Angiomax per protocol as well as oral loading dose of clopidogrel. He had no chest discomfort during the inflation. RESULTS: Successful stenting of the distal anastomotic site of the saphenous vein graft to the diagonal branch with reduction of stenosis from 90% to 0%. RECOMMENDATION: Patient will be continued on aspirin, Plavix, statin, beta paul. The importance of dual antiplatelet treatment were discussed with the patient and his family who are in full understanding and agreement. Duration of procedure is 20 minutes. MMODL / IJN: [id number] /
--- NOTE | 2019-03-27 13:31 | LTR ---
March 27, 2019 Re: Jaison Shaw Dear Dr. Mccartney: I had the opportunity to perform coronary angioplasty and stenting on Mr. Shaw at [facility] on the 27 of March and a full copy of the procedure note will be forwarded to you. In brief, he underwent successful stenting of the saphenous vein graft to the diagonal branch and I am hopeful that this procedure will stabilize his status. Thank you again for allowing me the opportunity to participate in his care. Please feel free to call for any questions. Sincerely yours, Joyce Durant MD MMROMELL / IJN: [id number] /
[2019-03-27 14:20] VITALS: BMI 22.2
[2019-03-27] MEDS: IPRATROPIUM-ALBUTEROL 3 ML NEB INHALATION PRN (14:57)
[2019-03-27 17:00] LABS: Glucose,Whole Blood 148 mg/dL (75-99)
[2019-03-27 20:42] LABS: Glucose,Whole Blood 115 mg/dL (75-99)
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
[2019-03-28 05:57] LABS: Glucose,Whole Blood 121 mg/dL (75-99)
[2019-03-28] MEDS: INSULIN ASPART (NovoLOG) 100 UNIT/ML VIAL SQ SCH ×2 (06:10→12:02)
[2019-03-28 06:43] LABS: Basophils % (A) 0 %; Eosinophils % (A) 0 %; HGB 12.9 gm/dL (13.0-17.5); Lymphocytes # (A) 0.8 k/uL (1.0-4.8); Lymphocytes % (A) 7 %; MCH 34.1 pg (25.0-35.0); MCHC 32.1 g/dL (31.0-37.0); MCV 106.3 fL (80.0-100.0); Macrocytosis Moderate; Mean Platelet Volume 8.4; Monocytes # (A) 0.6 k/uL (0-1.0); Monocytes % (A) 6 %; Neutrophils # (A) 8.9 k/uL (1.3-7.7); Neutrophils % (A) 85 %; Platelet Count 216 k/uL (150-450); RBC 3.77 m/uL (4.30-5.90); RDW 14.6 % (11.5-15.5); WBC 10.4 k/uL (3.8-10.6)
[2019-03-28 06:55] LABS: African American GFR (CKD) >90 (>60 ml/min/1.73 sqM); Anion Gap 9 mmol/L; Blood Urea Nitrogen 31 mg/dL (9-20); Calcium 9.2 mg/dL (8.4-10.2); Carbon Dioxide 25 mmol/L (22-30); Chloride 104 mmol/L (98-107); Glucose 109 mg/dL (74-99); Non-African American GFR(CKD) >90 (>60 ml/min/1.73 sqM); Potassium 4.8 mmol/L (3.5-5.1); Sodium 138 mmol/L (137-145)
[2019-03-28] MEDS: VILANTER INHALATION SCH ×2 (07:49→07:50)
[2019-03-28] MEDS: IPRATROPIUM-ALBUTEROL 3 ML NEB INHALATION SCH ×2 (07:49→13:22)
[2019-03-28] MEDS: UMECLIDIN INHALATION SCH ×2 (07:49→07:50)
[2019-03-28] MEDS: SYMBICORT 160-4.5 MCG INHALER INHALATION SCH (07:49)
[2019-03-28] MEDS: FLUTICASONE INHALATION SCH ×2 (07:49→07:50)
[2019-03-28] MEDS: ASPIRIN 81 MG PO SCH (07:51)
[2019-03-28] MEDS: TAMSULOSIN 0.4 MG CAP.ER.24H PO SCH (07:51)
[2019-03-28] MEDS: guaiFENesin 600 MG TABLET.ER PO SCH (07:51)
[2019-03-28] MEDS: ATORVASTATIN 80 MG TAB PO SCH (07:51)
[2019-03-28] MEDS: METOPROLOL SUCCINATE (ER) 25 MG TAB.ER.24H PO SCH (07:51)
[2019-03-28] MEDS: methylPREDNISolone SOD SUCCI 40 MG/ML 1 ML VIAL IV SCH ×2 (07:52→14:57)
[2019-03-28] MEDS: valACYclovir HCL 1,000 MG TABLET PO SCH ×2 (07:57→14:56)
[2019-03-28 11:33] LABS: Glucose,Whole Blood 82 mg/dL (75-99)
[2019-03-28] MEDS ORDERED: CLOPIDOGREL 75 MG TAB PO SCH (13:07)
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
[2019-03-28 15:33] VITALS: BP 116/83; PULSE 78; RESP 18; TEMP 97.7
--- NOTE | 2019-03-28 16:35 | P.PN ---
Subjective This is Gladys Javier PA-C dictating a progress note on this patient The patient was interviewed and examined by me as well as by Dr. Ross Case discussed with Dr. Ross and he agrees with the plan of care HPI/interval history Patient is a 58-year-old male with a past medical history of COPD, CAD status post CABG, prior [place], dyslipidemia who presented with complaints of chest discomfort. He had borderline abnormal troponins. No acute EKG changes. Yesterday he underwent a coronary angiogram showing significant disease involving the distal and anastomotic site of the saphenous pain graft to the diagonal branch and underwent angioplasty and stenting. He has done well post procedure. Patient seen and examined in his room. States his chest discomfort has improved. His breathing has also improved. Denies any dizziness. EXAMINATION Patient is afebrile, pulse in the 70s, respirations 18, blood pressure 116/83, oxygen saturation 94% on 3 L nasal cannula Patient seen and examined sitting in bed, in no acute distress Breath sounds diminished bilaterally Heart is regular, no audible murmurs Recurring access site minimally tender to palpation, no palpable hematomas No lower extremity edema REVIEW OF LABS, ECG WBC 10.4, hemoglobin 12.9, platelets 216, potassium 4.8, BUN 31, creatinine 0.91 LDL is 66 IMPRESSION / ASSESSMENT: CAD status post CABG and recent successful stenting to the SVG to the diagonal branch Ischemic cardiomyopathy, recent echo showing EF 40-45% Dyslipidemia COPD on home oxygen Former smoker PLAN: Continue dual antiplatelet therapy, beta blockers, and statins Maximize medical treatment for CAD and cardiomyopathy Objective - Vital Signs Vital signs: Vital Signs Temp 97.7 F 03/28/19 15:32 Pulse 78 03/28/19 15:32 Resp 18 03/28/19 15:32 BP 116/83 03/28/19 15:32 Pulse Ox 94 L 03/28/19 15:32 Intake & Output 03/27/19 03/28/19 03/28/19 18:59 06:59 18:59 Intake Total 206 049 7713 Output Total 400 Balance -48 700 1020 Weight 68.3 kg 68.1 kg Intake: IV 122 Intake, IV Titration 600 Amount Sodium Chloride 0.9% 1, 600 000 ml @ 75 mls/hr IV . [id number] [facility] Rx#:[id number] Oral 529 150 1651 Output: Urine 400 Other: # Voids 2 2 - Labs CBC & Chem 7: 03/28/19 06:19 03/28/19 06:19 Labs: Abnormal Lab Results - Last 24 Hours (Table) 03/27/19 03/27/19 03/28/19 Range/Units 16:52 20:40 05:55 RBC (4.30-5.90) m/uL Hgb (13.0-17.5) gm/dL MCV (80.0-100.0) fL Neutrophils # (1.3-7.7) k/uL Lymphocytes # (1.0-4.8) k/uL BUN (9-20) mg/dL Glucose (74-99) mg/dL POC Glucose (mg/dL) 148 H 115 H 121 H (75-99) mg/dL 03/28/19 03/28/19 Range/Units 06:19 06:19 RBC 3.77 L (4.30-5.90) m/uL Hgb 12.9 L (13.0-17.5) gm/dL MCV 106.3 H (80.0-100.0) fL Neutrophils # 8.9 H (1.3-7.7) k/uL Lymphocytes # 0.8 L (1.0-4.8) k/uL BUN 31 H (9-20) mg/dL Glucose 109 H (74-99) mg/dL POC Glucose (mg/dL) (75-99) mg/dL Microbiology - Last 24 Hours (Table) 03/26/19 Unknown Gram Stain - Preliminary Sputum Sputum Culture - Preliminary
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
== END 2019-03-28 16:10 | disposition home or self-care (01) | DRG 247 ==
LOC: EC 14:04 → 3SCARD 16:08
PROVIDERS: ADMIT Internal Medicine; ATTEND Internal Medicine
PROC: 027034Z Dilation of Coronary Artery, One Artery with Drug-eluting Intraluminal Device, Percutaneous Approach (ICD-10-PCS; principal; 2019-03-27 11:00)
PROC: B2111ZZ Fluoroscopy of Multiple Coronary Arteries using Low Osmolar Contrast (ICD-10-PCS; 2019-03-27 11:00)
PROC: B2131ZZ Fluoroscopy of Multiple Coronary Artery Bypass Grafts using Low Osmolar Contrast (ICD-10-PCS; 2019-03-27 11:00)
PROC: 4A023N7 Measurement of Cardiac Sampling and Pressure, Left Heart, Percutaneous Approach (ICD-10-PCS; 2019-03-27 11:00)
DX: I21.4 Non-ST elevation (NSTEMI) myocardial infarction (principal); T82.855A Stenosis of coronary artery stent, initial encounter; J96.11 Chronic respiratory failure with hypoxia; J44.1 Chronic obstructive pulmonary disease with (acute) exacerbation; I25.110 Atherosclerotic heart disease of native coronary artery with unstable angina pectoris; F17.200 Nicotine dependence, unspecified, uncomplicated; E78.5 Hyperlipidemia, unspecified; I25.5 Ischemic cardiomyopathy; I50.9 Heart failure, unspecified; I27.20 Pulmonary hypertension, unspecified; I44.0 Atrioventricular block, first degree; J84.10 Pulmonary fibrosis, unspecified; K21.9 Gastro-esophageal reflux disease without esophagitis; N40.0 Benign prostatic hyperplasia without lower urinary tract symptoms; I25.2 Old myocardial infarction; Z79.51 Long term (current) use of inhaled steroids; Z79.82 Long term (current) use of aspirin; Z79.899 Other long term (current) drug therapy; Z80.8 Family history of malignant neoplasm of other organs or systems; Z82.0 Family history of epilepsy and other diseases of the nervous system; Z99.81 Dependence on supplemental oxygen
CPT/HCPCS: 36415; 71046; 80048; 80053; 80061; 83735; 84484; 85025; 85049; 85347; 85610; 85730; 87070; 87205; 93005; 93459; 94640; 94760; 96365; 96376; 99291; C1874

== ENCOUNTER 2019-10-09 07:51 | Day surgery (SDC) | payer OTHER ==
[2019-10-02 15:46] VITALS: BMI 22.7
[~2019-10-09 07:51] MED LIST changes: -ALBUTEROL NEB (CONC) 2.5 MG/0.5 ML INHALATION ONE; +ALPRAZolam 0.25 MG TAB PO PRN; +ALPRAZolam 0.5 MG TAB PO PRN; +ASPIRIN 325 MG TAB PO STA; +ATORVASTATIN 80 MG TAB PO STA; -ATROPINE SULFATE 0.4 MG/ML 1 ML VIAL IM ONE; +LIDOCAINE 1% (10MG/ML) FOR IV START INTRADERMA PRN; -LIDOCAINE 1% 20 ML VIAL (10MG/ML) FOR IV START INTRADERMA PRN; -LIDOCAINE 2% (PF) 20 MG/ML 5 ML VIAL INHALATION ONE; -LIDOCAINE VISCOUS 300 MG/15 ML CUP MUCOUS MEM ONE; +NITROGLYCERIN SL TABS 0.4 MG TAB SUBLINGUAL PRN; -SODIUM CHLORIDE 0.9% 1,000 ML IV SCH; +SODIUM CHLORIDE 0.9% 1,000 ML in EMPTY BAG 1 BAG IV ONE
[2019-10-09] MEDS ORDERED: SODIUM CHLORIDE 0.9% 1,000 ML IV ONE (08:25)
[2019-10-09 08:27] VITALS: RESP 16; TEMP 98.2
[2019-10-09] MEDS ORDERED: fentaNYL (PF) 50 MCG/ML 2 ML AMP ONE (09:45)
[2019-10-09] MEDS ORDERED: MIDAZOLAM 2 MG/2 ML VIAL IV ONE (09:57)
[2019-10-09] MEDS ORDERED: fentaNYL (PF) 50 MCG/ML 2 ML AMP IV ONE (09:58)
[2019-10-09] MEDS ORDERED: LIDOCAINE 1% INJ 10MG/ML (20 ML MDV) SQ ONE (09:59)
[2019-10-09] MEDS ORDERED: IOPAMIDOL-370 100ML BTL INJ ONE (10:21)
[2019-10-09 14:47] VITALS: BP 101/73
[2019-10-09 15:43] VITALS: PULSE 60
--- NOTE | 2019-10-09 16:46 | CC ---
CARDIAC CATHETERIZATION REPORT INDICATION: Unstable angina. PROCEDURE NOTE: After obtaining informed consent, left heart catheterization, coronary angiogram and selective injection of the bypass grafts is performed via the right femoral artery using standard Renard catheters. Patient tolerated the procedure well without any apparent of complications. A femoral angiogram was performed and Angio-Seal will be deployed for hemostasis. Patient received moderate conscious sedation. Total sedation time was 27 minutes. FINDINGS: HEMODYNAMICS: Left ventricular end-diastolic pressure is 9 mm. There is no significant gradient across the aortic valve. LEFT VENTRICULOGRAM: Left ventriculogram is not performed. ANGIOGRAPHIC DATA [place] CORONARIES 1. Left main coronary artery appears calcified but is free of significant stenosis. Divides into left anterior descending coronary artery and circumflex coronary artery. LAD appears subtotally occluded in its midportion with competitive flow into the distal LAD and the diagonal branch. 2. Circumflex coronary artery has moderate to severe disease and there are collaterals going to the distal RCA. 3. Selective injection of the bypass grafts. FUNG to LAD appears patent. Proximal and distal anastomotic sites are free of significant disease. This was selective images. 4. Selective injection of the radial artery graft to the OM. The graft appears patent. Proximal and distal anastomotic sites are free of disease and the pala coronary appears free of focal stenotic lesion. 5. Venous graft to the diagonal branch was previously sensored, albeit patent. Anastomotic sites are free of significant disease. CONCLUSION: [place] 3 vessel coronary artery disease with patent FUNG to LAD, venous graft to diagonal and radial artery graft to the OM branch. PLAN: I reviewed angiographic data with the patient and told him that his management is going to be in the form of risk factor modification and optimal medical therapy. MMODL / IJN: [id number] /
--- NOTE | 2019-10-09 16:51 | LTR ---
DATE OF SERVICE: 10/09/2019 RE: Jaison Shaw Dear Francisca; I performed cardiac catheterization on Jaison Shaw, a detailed catheterization note is enclosed for your records. In brief, the cardiac catheterization revealed [place] 3 vessel coronary artery disease with patent FUNG to LAD, venous graft to diagonal, and the radial artery graft to the OM. His management is going to be in the form of risk factor modification, medical therapy. Thank you for giving us the privilege to participate in the care of this pleasant gentleman. Sincerely, MD RUBINA Fernando / SHELLY: [id number] /
== END 2019-10-09 15:30 | disposition home or self-care (01) ==
LOC: CATHCVL 07:51
PROVIDERS: ATTEND Internal Medicine Cardiovascular Disease
DX: I25.110 Atherosclerotic heart disease of native coronary artery with unstable angina pectoris (principal); I25.2 Old myocardial infarction; E78.5 Hyperlipidemia, unspecified; E78.00 Pure hypercholesterolemia, unspecified; Z95.1 Presence of aortocoronary bypass graft; Z72.0 Tobacco use; Z79.899 Other long term (current) drug therapy; Z79.82 Long term (current) use of aspirin; Z79.51 Long term (current) use of inhaled steroids; Z79.02 Long term (current) use of antithrombotics/antiplatelets; Z82.49 Family history of ischemic heart disease and other diseases of the circulatory system
CPT/HCPCS: 93459; C1769 ×3; C1760; C1894; J2250; J2001; J3010; Q9967